=== PATIENT | male | born 1970 | race Caucasian/White ===

== ENCOUNTER 2021-06-04 00:11 | Emergency (ER) | payer SELFPAY ==
[2021-06-04 00:12] VITALS: BP 180/96; PULSE 95; RESP 18; TEMP 36.8; O2SAT 98; BMI 27.3
[2021-06-04 00:33] VITALS: O2SAT 98
--- NOTE | 2021-06-04 00:35 | EDS_ITS ---
HPI History of Present Illness Chief Complaint: Shortness of Breath Informant: patient Onset/Context/Timing Onset: Days (3) Context: gradual Timing: Continuous Worsened by: - (Drinking hot fluids) Relieved by: Nothing Associated Symptoms cough, rhinorrhea, fever, subjective, yellow sputum and green sputum; Negative for ear pain, sore throat or chills Chest Pain: Positive for Pressure and - (Heaviness) Narrative Narrative: Patient presents with shortness of breath that has been getting worse over the past 3 days. Patient states she is coughing up some green and yellow sputum. Patient states his breathing is worse whenever he drinks hot fluids. Patient states nothing makes it better. Patient admits to some rhinorrhea. Patient admits to subjective fevers but did not take his temperature at home. Patient admits to some heaviness and pressure in his chest. Patient denies any nausea or vomiting. Patient denies any PE risk factors. PE Risk Factors: Negative for Cancer, OCP + Smoking + > 35, Prior DVT or PE, Recent immobilization, Recent surgery and Recent travel [facility] Medical History Degenerative disc disease Home Medications Ibuprofen [Motrin] 800 mg PO TID PRN PRN #20 tab 01/29/15 [Rx Last Taken Unknown] hydrocodone-acetaminophen 1 - 2 tab PO Q4H PRN PRN #20 tablet 01/29/15 [Rx Last Taken Unknown] penicillin V potassium 500 mg PO 4X/DAY #40 tab 01/29/15 [Rx Last Taken Unknown] Allergy/AdvReac Type Severity Reaction Status Date / Time No Known Allergies Allergy Verified 01/29/15 14:37 Surgical History H/O hernia repair Social History Smoking Status: Current every day smoker tobacco type: cigarettes ROS ROS ED Constitutional Constitutional ED: Reports fever(s); Denies chills Eyes Eyes: Denies blurry vision or change in vision ENT ENT ED: Reports rhinorrhea; Denies sore throat Cardiovascular Cardiovascular: Reports chest pain; Denies palpitations Respiratory/Chest Respiratory/Chest: Reports cough and dyspnea Gastrointestinal Gastrointestinal: Denies nausea or vomiting Genitourinary Genitourinary ED: Denies dysuria or hematuria Musculoskeletal Musculoskeletal: Reports back pain and neck pain Integumentary Denies abscess or rash Neurologic Neurologic: Denies headache(s) or weakness Allergic/Immunologic Allergic/Immunologic ED: Denies mouth swelling or urticaria EXAM Physical Exam Const Vital Signs: 06/04/21 00:12 06/04/21 00:33 06/04/21 00:52 Temperature 98.3 F Temperature Source Oral Pulse Rate 95 84 Respiratory Rate 18 22 H Respiratory Effort Short of Breath Respiratory Pattern Tachypnea Tachypnea Blood Pressure 180/96 H Blood Pressure Mean 124 Pulse Ox 98 Oxygen Delivery Method Room Air Room Air Positive well nourished and well developed General Appearance ED: well developed HEENT Reports moist mucous membranes Neck supple and no JVD Resp normal respiratory effort Auscultation: wheezes scattered wheezes Cardio regular rate, regular rhythm and no murmurs GI normal to inspection, nondistended, normoactive bowel sounds and non-tender Palpation: soft Extremity normal to inspection General Extremety ED: Negative for edema or tenderness General Extremity: Negative for edema Neuro oriented x3, CN's II-XII intact bilaterally and no sensory deficits noted Sensorium / Orientation: alert Motor Exam: strength 5/5 throughout Psych mental status grossly normal Skin no rashes or lesions noted MDM MDM MDM Narrative Medical decision making narrative: Patient was given a DuoNeb aerosol here. EKG was obtained. On my interpretation, it showed a normal sinus rhythm with a rate of 77. MA interval, QRS interval, and QTc intervals were all normal. [place] was normal. There are no acute ST or T wave changes. CBC shows a mild leukocytosis of 13.5. Basic metabolic profile was within normal limits. Portable 1 view chest x-ray was obtained. On my interpretation, lung ahuja are clear. There is normal cardiac silhouette. Bony thorax is normal. There is no acute process noted. Radiologist also interpreted the x-ray and agrees. Patient had faint wheezes on reexamination. Patient was given a repeat dose of albuterol. Patient was feeling better after this. Patient was advised of his findings. Patient was instructed to follow-up with his primary care physician in 5 to 7 days for reevaluation. Patient understood and was agreeable with the plan. All questions were answered. Lab Data Attestation: I reviewed the patient's lab results. Labs: Laboratory Results - last 24 hr 06/04/21 06/04/21 00:48 00:48 WBC 13.5 H RBC 4.75 Hgb 14.1 Hct 41.8 MCV 88.0 MCH 29.7 MCHC 33.7 RDW Std Deviation 41.6 RDW Coeff of Wolfgang 12.9 Plt Count 199 MPV 10.6 Immature Gran % (Auto) 0.400 Neut % (Auto) 61.7 Lymph % (Auto) 28.1 Wise % (Auto) 8.6 Eos % (Auto) 0.8 Baso % (Auto) 0.4 Absolute Neuts (auto) 8.3 H Absolute Lymphs (auto) 3.78 Nucleated RBC % 0 Sodium 140 Potassium 3.7 Chloride 108 H Carbon Dioxide 25.0 Anion Gap 7 BUN 14 Creatinine 1.04 Estim Creat Clear Calc 84.98 Est GFR (MDRD) Af Amer 97 Est GFR (MDRD) Non-Af 80 BUN/Creatinine Ratio 13.5 Glucose 112 H Calcium 8.7 Radiography Chest X-Ray - ED: 1 View, Read by ED Physician, Read by Radiologist and No Acute Disease EKG Initial EKG: Attestation: I personally reviewed and interpreted this EKG as follows: Interpretation: Sinus Rhythm (77) and No Acute Injury Pattern Prior EKG tracings: not available for review Discharge Plan Triage Chief Complaint: Shortness of Breath ED Provider: Ronny Ashford Dx/Rx/DC Orders Clinical Impression: Dyspnea, Reactive airway disease Instructions: ED COPD Flare Prescriptions: No Action penicillin V potassium 500 MG tablet 500 mg PO 4X/DAY Qty: 40 RF: 0 hydrocodone-acetaminophen 1 TABLET tablet 1 - 2 tab PO Q4H PRN PRN (Reason: Pain) Qty: 20 RF: 0 Ibuprofen [Motrin] 800 MG tablet 800 mg PO TID PRN PRN (Reason: Pain) Qty: 20 RF: 0 Primary Care Provider: Care Physician,No Primary Referrals: Luis Antonio Guzman MD [STAFF PHYSICIAN] - 5-7 Days Care Physician,No Primary [Primary Care Provider] - Disposition Disposition: Home, Self Care
--- NOTE | 2021-06-04 00:38 | RAD_ITS ---
EXAM: XR CHEST, 1 VIEW CLINICAL INDICATION: Dyspnea TECHNIQUE: Frontal view of the chest. This report was created using [employer] report generation technology. COMPARISON: None. FINDINGS: LUNGS AND PLEURAL SPACES: Unremarkable. No consolidation or edema. No pneumothorax. No effusion. HEART: Unremarkable. Cardiac silhouette not enlarged. MEDIASTINUM: Central airways and mediastinal contour are unremarkable. BONES/JOINTS: Unremarkable. SOFT TISSUES: Unremarkable. RAD/Chest 1 View (Portable) IMPRESSION: No radiographic evidence of acute cardiopulmonary disease. Electronically Signed: Farideh Patel MD at 2:32 EDT ,
--- NOTE | 2021-06-04 00:38 | EKG12_ITS ---
Test Reason : SOB Blood Pressure : / mmHG Vent. Rate : 077 BPM Atrial Rate : 077 BPM P-R Int : 168 ms QRS Dur : 078 ms QT Int : 372 ms P-R-T Axes : 071 077 058 degrees QTc Int : 420 ms Normal sinus rhythm Normal ECG Confirmed by CARMEN HOLT, LUZ MARINA ([id number]), commercial production editor JADE SANCHEZ ([id number]) on 06/06/2021 1:04:27 PM Referred By: HERNANDO Confirmed By:DINAH MORALES MD
[2021-06-04 00:52] VITALS: PULSE 84; RESP 22
[2021-06-04] MEDS: Ipratropium/Albuterol Sulfate 3 ML AMPUL.NEB INHALATION (00:52)
[2021-06-04 00:59] LABS: Absolute Lymphocyte Count 3.78 X10^3/uL (0.83-4.51); Absolute Neutrophil Count 8.3 X10^3/uL (2.0-7.7); Basophil# 0.06 X10^3/uL; Basophil% 0.4 % (0-1); Eosinophil# 0.11 X10^3/uL; Eosinophils% 0.8 % (0-5); Hematocrit 41.8 % (40-54); Hemoglobin 14.1 g/dL (13.0-16.5); Lymphocyte # 3.78 X10^3/ul (0.83-4.51); Lymphocyte % 28.1 % (19-41); Mean Corp Hgb Conc 33.7 g/dL (32-36); Mean Corpuscular Hgb 29.7 pg (27.0-32.0); Mean Platelet Vol. 10.6 fl (6.2-12.0); Monocyte# 1.16 X10^3/uL; Monocyte% 8.6 % (0-10); NRBC Flagged by Analyzer 0 % (0-5); Neutrophil # 8.29 X10^3/uL (2.7-7.7); Neutrophil % 61.7 % (47-70); Platelet Count 199 K/mm3 (150-450); RBC Distribution Width CV 12.9 % (11.6-14.6); RBC Distribution Width SD 41.6 fl (35.1-43.9); Red Blood Count 4.75 M/mm3 (4.6-6.2); White Blood Count 13.5 K/mm3 (4.4-11.0)
[2021-06-04 01:13] LABS: Anion Gap 7 (5-15); BUN 14 mg/dL (7-18); BUN/Creat Ratio 13.5 RATIO (10-20); Calcium,Total 8.7 mg/dL (8.5-10.1); Chloride 108 mmol/L (98-107); Creatinine, Serum 1.04 mg/dL (0.70-1.30); EST Glomerular Filtration Rate 80 mL/min (>60); Est Glom Filt Rate - Afr Amer 97 mL/min (>60); Estimated Creatinine Clearance 84.98 ml/min; Glucose 112 mg/dL (74-106); Potassium 3.7 mmol/L (3.5-5.1); Sodium Level 140 mmol/L (136-145)
[2021-06-04] MEDS: Albuterol 2.5 MG/3 ML VIAL.NEB. INHALATION (02:56)
[2021-06-04 02:57] VITALS: BP 156/99; PULSE 80; PULSE 95; RESP 18; O2SAT 96
== END 2021-06-04 02:59 | disposition home or self-care (01) ==
PROVIDERS: Emergency Provider Emergency Medicine; Visit Provider Emergency Medicine
DX: J44.1 Chronic obstructive pulmonary disease with (acute) exacerbation (principal); F17.210 Nicotine dependence, cigarettes, uncomplicated
CPT/HCPCS: 71045; 80048; 85025; 87428; 93005; 94640; 99283; 99285; A4216

== ENCOUNTER 2021-06-04 13:10 | Emergency (ER) | payer SELFPAY ==
[2021-06-04 13:11] VITALS: BP 154/87; PULSE 86; RESP 18; TEMP 36.6; O2SAT 97; BMI 26.6
--- NOTE | 2021-06-04 14:03 | EDS_ITS ---
HPI History of Present Illness Chief Complaint: Shortness of Breath Narrative Narrative: Patient presents with continued shortness of breath. He states he was seen in the emergency department last evening with a performed a work-up on him. He was given aerosol treatments twice, but sent home without any medication, so he states. He continues to smoke cigarettes at least a pack a day. This is down from 2 to 3 packs a day. He states he has become short of breath once again. He denies any chest pain. No leg swelling. No other symptoms. He states I thought they give me something to clear it up. No cough. No other symptoms. [facility] Medical History (Updated 06/04/21 @ 15:29 by Jorge Valderrama MD) COPD (chronic obstructive pulmonary disease) Degenerative disc disease Home Medications Ibuprofen [Motrin] 800 mg PO TID PRN PRN #20 tab 01/29/15 [Rx Last Taken Unknown] hydrocodone-acetaminophen 1 - 2 tab PO Q4H PRN PRN #20 tablet 01/29/15 [Rx Last Taken Unknown] penicillin V potassium 500 mg PO 4X/DAY #40 tab 01/29/15 [Rx Last Taken Unknown] albuterol sulfate [Ventolin HFA] 2 puff INHALATION Q4H PRN PRN #1 ea 06/04/21 [Rx Last Taken Unknown] prednisone 40 mg PO DAILY 10 Days #20 tab 06/04/21 [Rx Last Taken Unknown] Allergy/AdvReac Type Severity Reaction Status Date / Time No Known Allergies Allergy Verified 06/04/21 13:14 Surgical History H/O hernia repair Social History Smoking Status: Current every day smoker tobacco type: cigarettes ROS ROS ED ROS Narrative Constitutional: No fever, no chills. HEENT: No sore throat. No neck pain. No loss of vision. No rhinorrhea. Cardiovascular: No chest pain. No palpitations. No pedal edema. Respiratory: No cough, positive shortness of breath. Abdominal: No abdominal pain. No nausea. No vomiting. Genitourinary: No dysuria. No hematuria. Musculoskeletal: No myalgias. No arthralgias. Neurologic: No headaches. No dizziness. No lightheadedness. Skin: No rash. No change in color. Psychiatric: No depression. No anxiety. EXAM Physical Exam Narrative Exam Narrative: Afebrile. Vital signs noted. HEENT: Normocephalic. Atraumatic. PERRL, EOMI. Neck soft and supple. No point tenderness or step off. Cardiovascular: Regular rate and rhythm. No murmurs, rubs, or gallops appreciated. Respiratory: No tachypnea. Speaking in full sentences. No retractions. Positive expiratory wheeze. Moving a fair amount of air. Gastrointestinal: Abdomen soft, nontender, with normoactive bowel sounds. No rebound or guarding. Neurological: Awake. Alert. Nonfocal, nonlateralizing. Skin: No rash. Normal color. No pallor. Musculoskeletal: No pedal edema. Full range of motion extremities. Const Vital Signs: 06/04/21 13:11 06/04/21 14:08 06/04/21 14:11 Temperature 97.9 F Temperature Source Temporal Pulse Rate 86 79 Respiratory Rate 18 21 H Respiratory Effort Short of Breath Respiratory Pattern Tachypnea Blood Pressure 154/87 H 156/95 H Blood Pressure Mean 109 115 Pulse Ox 97 97 Oxygen Delivery Method Room Air Room Air Room Air 06/04/21 14:25 Temperature Temperature Source Pulse Rate 87 Respiratory Rate 20 H Respiratory Effort Respiratory Pattern Blood Pressure Blood Pressure Mean Pulse Ox 98 Oxygen Delivery Method Room Air MDM MDM MDM Narrative Medical decision making narrative: He has a pulse ox of 97% on room air. Smoking cessation was once again discussed. He had a work-up last night inc luding chest x-ray and EKG and laboratory work. I do not feel that these need to be repeated. He will be given a DuoNeb aerosolized treatment here along with prednisone 60 mg orally. I will write him prescriptions for an albuterol inhaler and a prednisone burst should he be discharged. He was given an albuterol aerosolized treatment after the DuoNeb aerosolized treatment. He has improved. His pulse ox is 98% on room air without evidence of hypoxia. He will be given albuterol 2 puffs inhaled here in the emergency department. Smoking cessation was discussed. He was given a prednisone burst for the next 10 days. He will follow up with a primary care physician. Return instructions were reviewed. Disposition is discharged home in stable condition. Discharge Plan Triage Chief Complaint: Shortness of Breath ED Provider: Jorge Valderrama Dx/Rx/DC Orders Clinical Impression: COPD exacerbation, Dyspnea, Smoking history Instructions: Using an Inhaler with a Spacer, ED COPD Flare, ED Dyspnea Prescriptions: New prednisone 20 mg tablet 40 mg PO DAILY 10 Days Qty: 20 RF: 0 albuterol sulfate [Ventolin HFA] 90 mcg/actuation HFA aerosol inhaler 2 puff inhalation Q4H PRN PRN (Reason: Wheezing) Qty: 1 RF: 0 No Action penicillin V potassium 500 MG tablet 500 mg PO 4X/DAY Qty: 40 RF: 0 hydrocodone-acetaminophen 1 TABLET tablet 1 - 2 tab PO Q4H PRN PRN (Reason: Pain) Qty: 20 RF: 0 Ibuprofen [Motrin] 800 MG tablet 800 mg PO TID PRN PRN (Reason: Pain) Qty: 20 RF: 0 Primary Care Provider: Care Physician,No Primary Referrals: Carlos Joaquin MD [STAFF PHYSICIAN] - As Needed Care Physician,No Primary [Primary Care Provider] - Activity Restrictions/Additional Instructions: Stop smoking! Disposition Disposition: Home, Self Care
[2021-06-04 14:08] VITALS: O2SAT 97
[2021-06-04] MEDS: predniSONE 20 MG Tablet 60 MG PO (14:08)
[2021-06-04 14:11] VITALS: BP 156/95; PULSE 79; RESP 21; O2SAT 97
[2021-06-04] MEDS: Ipratropium/Albuterol Sulfate 3 ML AMPUL.NEB INHALATION (14:17)
[2021-06-04 14:25] VITALS: PULSE 87; RESP 20; O2SAT 98
[2021-06-04] MEDS: Albuterol 2.5 MG/3 ML VIAL.NEB. INHALATION (14:34)
[2021-06-04 15:48] VITALS: BP 156/94; PULSE 81; RESP 15; O2SAT 99
== END 2021-06-04 15:49 | disposition home or self-care (01) ==
PROVIDERS: Emergency Provider Emergency Medicine; Visit Provider Emergency Medicine
DX: J44.1 Chronic obstructive pulmonary disease with (acute) exacerbation (principal); F17.210 Nicotine dependence, cigarettes, uncomplicated
CPT/HCPCS: 94640

== ENCOUNTER 2021-09-06 08:41 | Emergency (ER) | payer OTHER, SELFPAY ==
[2021-09-06 08:43] VITALS: BP 148/93; PULSE 76; RESP 16; TEMP 36.7; O2SAT 98; BMI 24.3
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
[2021-09-06] MEDS: fentaNYL 100 MCG/2 ML Ampul 25 MCG IV (09:17)
[2021-09-06] MEDS: Ondansetron 4 MG/2 ML Vial IV (09:18)
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
[2021-09-06 09:22] LABS: Absolute Lymphocyte Count 2.52 X10^3/uL (0.83-4.51); Absolute Neutrophil Count 4.9 X10^3/uL (2.0-7.7); Basophil# 0.05 X10^3/uL; Basophil% 0.6 % (0-1); Eosinophil# 0.15 X10^3/uL; Eosinophils% 1.8 % (0-5); Hematocrit 42.3 % (40-54); Hemoglobin 13.7 g/dL (13.0-16.5); Lymphocyte # 2.52 X10^3/ul (0.83-4.51); Lymphocyte % 30.2 % (19-41); Mean Corp Hgb Conc 32.4 g/dL (32-36); Mean Corpuscular Hgb 29.8 pg (27.0-32.0); Mean Platelet Vol. 10.3 fl (6.2-12.0); Monocyte# 0.74 X10^3/uL; Monocyte% 8.9 % (0-10); NRBC Flagged by Analyzer 0 % (0-5); Neutrophil # 4.86 X10^3/uL (2.7-7.7); Neutrophil % 58.3 % (47-70); Platelet Count 177 K/mm3 (150-450); RBC Distribution Width CV 13.2 % (11.6-14.6); RBC Distribution Width SD 44.8 fl (35.1-43.9); White Blood Count 8.3 K/mm3 (4.4-11.0)
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
[2021-09-06 09:26] VITALS: BP 152/101; PULSE 91; RESP 20; O2SAT 98
--- NOTE | 2021-09-06 09:26 | RAD_ITS ---
STUDY: X-RAY - RIGHT TIBIA AND FIBULA REASON FOR EXAM: Male, 51 years old. Pain TECHNIQUE: 4 view(s) of the tibia and fibula were obtained. COMPARISON: None. FINDINGS: Normal visualized tibia. Normal visualized fibula. The soft tissue structures are unremarkable. RAD/Tibia & Fibula 2 Views IMPRESSION: Normal x-ray examination of the tibia and fibula. Electronically Signed: Susan Burch MD at 10:40 EDT ,
[2021-09-06 09:32] LABS: Anion Gap 5 (5-15); BUN 21 mg/dL (7-18); BUN/Creat Ratio 17.1 RATIO (10-20); Calcium,Total 8.7 mg/dL (8.5-10.1); Chloride 107 mmol/L (98-107); Creatinine, Serum 1.23 mg/dL (0.70-1.30); EST Glomerular Filtration Rate 66 mL/min (>60); Est Glom Filt Rate - Afr Amer 80 mL/min (>60); Estimated Creatinine Clearance 71.85 ml/min; Glucose 98 mg/dL (74-106); Sodium Level 140 mmol/L (136-145)
[2021-09-06 09:41] LABS: Prothrombin Time (Protime)PT. 13.3 SECONDS (11.7-14.9)
[2021-09-06 10:15] VITALS: BP 165/119; PULSE 73; RESP 16; O2SAT 100
[2021-09-06] MEDS: Ketorolac 15 MG/ML Vial IV (11:40)
[2021-09-06 12:19] VITALS: BP 155/103; PULSE 69; RESP 16; O2SAT 99
== END 2021-09-06 12:31 | disposition home or self-care (01) ==
PROVIDERS: Emergency Provider Student in an Organized Health Care Education/Training Program; Visit Provider Student in an Organized Health Care Education/Training Program
DX: S09.90XA Unspecified injury of head, initial encounter (principal); J44.9 Chronic obstructive pulmonary disease, unspecified; S39.012A Strain of muscle, fascia and tendon of lower back, initial encounter; S80.11XA Contusion of right lower leg, initial encounter; V47.1XXA Car passenger injured in collision with fixed or stationary object in nontraffic accident, initial encounter; Y93.89 Activity, other specified; F17.210 Nicotine dependence, cigarettes, uncomplicated
CPT/HCPCS: 70450; 71250; 72125; 73590; 74176; 80048; 82077; 85025; 85610; 93005; 96374; 96375; 99285; A4216; J2405

== ENCOUNTER 2023-02-03 08:41 | Emergency (ER) | payer MEDICAID, SELFPAY ==
[2023-02-03 08:43] VITALS: BP 132/89; PULSE 88; RESP 14; TEMP 36.4; O2SAT 98; BMI 25.2
--- NOTE | 2023-02-03 09:02 | EDS_ITS ---
HPI History of Present Illness Chief Complaint: General Illness Detail of Chief Complaint: Not feeling well since yesterday Informant: patient Narrative Narrative: Patient presents to the emergency department complaint of not feeling well since yesterday. Patient had a runny nose all day yesterday. Diarrhea started last evening and has had about 8-10 episodes of watery stool. He had subjective fever. Patient was at a warming long term last night. He has had no vomiting. He denies abdominal pain. No cough or sore throat or bodyaches. Patient has history of hypertension. [facility] Medical History COPD (chronic obstructive pulmonary disease) Degenerative disc disease Home Medications albuterol sulfate 90 mcg/actuation aerosol inhaler (Ventolin HFA) 2 puff inhalation Q4H PRN PRN Wheezing #1 ea 06/04/21 [Rx Last Taken Unknown] cyclobenzaprine 10 mg tablet 10 mg PO BID PRN muscle spasm #10 tabs 09/06/21 [Rx Last Taken Unknown] naproxen 500 mg tablet (Naprosyn) 500 mg PO BID PRN pain #20 tabs 09/06/21 [Rx Last Taken Unknown] loperamide 2 mg-simethicone 125 mg tablet (Imodium Multi-Symptom Relief) 1 tab PO TID PRN loose stool #14 tabs 02/03/23 [Rx Last Taken Unknown] Allergy/AdvReac Type Severity Reaction Status Date / Time No Known Allergies Allergy Verified 02/03/23 08:43 Surgical History H/O hernia repair Social History Smoking Status: Current every day smoker tobacco type: cigarettes ROS ROS ED Review of Systems ROS Unobtainable: other Constitutional Constitutional ED: Reports fever(s) and lethargy; Denies chills, sweats or weight loss Eyes Eyes: Denies blurry vision, change in vision or diplopia ENT ENT ED: Denies rhinorrhea or sore throat Cardiovascular Cardiovascular: Denies chest pain, orthopnea or racing heartbeat Respiratory/Chest Respiratory/Chest: Denies cough, dyspnea, dyspnea on exertion, orthopnea or spu mima Gastrointestinal Gastrointestinal: Reports diarrhea; Denies abdominal pain, nausea or vomiting Genitourinary Genitourinary ED: Denies dysuria, hematuria or urinary frequency Musculoskeletal Musculoskeletal: Denies arthralgias, back pain, myalgias or neck pain Integumentary Denies abscess, Abrasions or rash Neurologic Neurologic: Denies headache(s) or weakness Psychiatric Psychiatric: Denies anxiety, depression or suicidal thoughts Endocrine Endocrinology: Denies polydipsia, polyphagia or polyuria Hematologic/Lymphatic Hematologic/Lymphatic: Denies easy bleeding, easy bruising or lymphadenopathy Allergic/Immunologic Allergic/Immunologic ED: Denies mouth swelling, tongue swelling or urticaria EXAM Physical Exam Const Vital Signs: 02/03/23 08:43 02/03/23 09:27 Temperature 97.6 F L Temperature Source Temporal Pulse Rate 88 Respiratory Rate 14 Respiratory Effort Normal Non-Labored Blood Pressure 132/89 H Blood Pressure Mean 103 Pulse Ox 98 Oxygen Delivery Method Room Air Positive well nourished and well developed General Appearance ED: well developed and NAD HEENT Reports TM's clear and moist mucous membranes normocephalic and atraumatic; Negative for trauma or tenderness Tympanic Membrane ED: Yes TM's clear Eyes PERRL and EOMs intact bilaterally General Eye ED: Negative for pale conjunctiva or scleral icterus Neck no lymphadenopathy, supple and no JVD General: Negative for tenderness Chest Wall inspection of chest normal and palpation of chest normal Chest: Negative for tenderness Resp normal respiratory effort and clear to auscultation bilaterally Effort and Inspection: Negative for respiratory distress or pain with movement Auscultation: Negative for rhonchi, wheezes or diminished lung sounds Cardio regular rate, regular rhythm, S1 normal heart sound, S2 normal heart sound and no murmurs Peripheral Pulses: pulses 2+ throughout GI normal to inspection, nondistended, normoactive bowel sounds, soft to palpation, non-tender, non-distended and no masses Back/Spine no CVA tenderness and no thoracic nor lumbar tenderness Extremity normal to inspection General Extremety ED: Negative for edema General Extremity: Negative for edema Neuro oriented x3, CN's II-XII intact bilaterally, no sensory deficits noted and gait normal Sensorium / Orientation: awake, alert, oriented to person, oriented to place and oriented to time Motor Exam: strength 5/5 throughout and strength abnormal Psych mental status grossly normal Skin no rashes or lesions noted and no wounds MDM MDM MDM Narrative Medical decision making narrative: Patient presents with diarrhea that started last evening. He denies abdominal pain. He has had a runny nose. Differential is likely viral syndrome. Yas stern looks well. Vital signs stable. We did obtain a COVID and flu test which were negative. I suspect likely a viral enteritis. I did offer him IV fluids although clinically he looks well. He denied wanting fluids at this time otherwise. I did give him a dose of Imodium. Patient thinks the diarrhea is actually slowed down. Will discharge to home. I will write him a prescription for Imodium. Patient advised to return if persistent diarrhea, dehydration, vomiting, or condition worsening weight. Discharge Plan Triage Chief Complaint: General Illness ED Provider: Tejas Faye Dx/Rx/DC Orders Clinical Impression: Diarrhea Instructions: ED Diarrhea, Unknown Cause, ED Viral Syndrome (Adult) Prescriptions: New loperamide-simethicone [Imodium Multi-Symptom Relief] 2-125 mg tablet 1 tab PO TID PRN (Reason: loose stool) Qty: 14 0RF No Action albuterol sulfate [Ventolin HFA] 90 mcg/actuation HFA aerosol inhaler 2 puff inhalation Q4H PRN PRN (Reason: Wheezing) Qty: 1 0RF naproxen [Naprosyn] 500 mg tablet 500 mg PO BID PRN (Reason: pain) Qty: 20 0RF cyclobenzaprine 10 mg tablet 10 mg PO BID PRN (Reason: muscle spasm) Qty: 10 0RF Primary Care Provider: [facility] Meghan Ellington [facility] - [facility]-5 Days Disposition Disposition: Home, Self Care Discharge Date/Time: 02/03/23 10:06
[2023-02-03] MEDS: Loperamide 2 MG Capsule 4 MG PO (09:15)
== END 2023-02-03 10:06 | disposition home or self-care (01) ==
PROVIDERS: Emergency Provider Emergency Medicine; Visit Provider Emergency Medicine
DX: R19.7 Diarrhea, unspecified (principal); J44.9 Chronic obstructive pulmonary disease, unspecified; F17.210 Nicotine dependence, cigarettes, uncomplicated; Z59.02 Unsheltered homelessness
CPT/HCPCS: 87428; 99282

== ENCOUNTER 2023-02-13 12:34 | Emergency (ER) | payer MEDICAID, SELFPAY ==
[2023-02-13 12:35] VITALS: BP 116/68; PULSE 102; RESP 16; TEMP 37.3; O2SAT 99; BMI 24.5
[2023-02-13 12:53] VITALS: BP 118/78; PULSE 88; RESP 18; TEMP 37.1; O2SAT 97
--- NOTE | 2023-02-13 12:55 | EX.ED.DYSGE1 ---
HPI History of Present Illness Chief Complaint: Cold Sx Informant: patient Narrative Narrative: 52-year-old male with a previous medical history of COPD presenting to the emergency room with myalgias and fever. Patient states that for 10 days he had diarrhea. He was seen in the emergency department and it subsequently stopped yesterday. Last evening he began to experience fever cough with occasional sputum production and myalgias. He states it feels like I been hit by a truck. He notes generalized soreness to his abdomen. He denies sore throat or ear pain. No rashes. He smokes a half a pack a day which is significantly improved from his 3 packs a day. He does not wear home oxygen. He uses albuterol for his COPD. [facility] Medical History Anxiety COPD (chronic obstructive pulmonary disease) Degenerative disc disease Depression Drug abuse Home Medications albuterol sulfate 90 mcg/actuation aerosol inhaler (Ventolin HFA) 2 puff inhalation Q4H PRN PRN Wheezing #1 ea 06/04/21 [Rx Last Taken Unknown] cyclobenzaprine 10 mg tablet 10 mg PO BID PRN muscle spasm #10 tabs 09/06/21 [Rx Last Taken Unknown] naproxen 500 mg tablet (Naprosyn) 500 mg PO BID PRN pain #20 tabs 09/06/21 [Rx Last Taken Unknown] loperamide 2 mg-simethicone 125 mg tablet (Imodium Multi-Symptom Relief) 1 tab PO TID PRN loose stool #14 tabs 02/03/23 [Rx Last Taken Unknown] Allergy/AdvReac Type Severity Reaction Status Date / Time No Known Allergies Allergy Verified 02/03/23 08:43 Surgical History H/O hernia repair Social History Smoking Status: Current every day smoker tobacco type: cigarettes ROS ROS ED Constitutional Constitutional ED: Reports chills and fever(s); Denies weight loss Eyes Eyes: Denies change in vision or diplopia ENT ENT ED: Denies ear pain, rhinorrhea or sore throat Cardiovascular Cardiovascular: Denies chest pain, orthopnea, palpitations or racing heartbeat Respiratory/Chest Respiratory/Chest: Reports cough, dyspnea and sputum; Denies orthopnea Gastrointestinal Gastrointestinal: Reports abdominal pain and diarrhea; Denies nausea or vomiting Genitourinary Genitourinary ED: Denies dysuria, hematuria or urinary frequency Musculoskeletal Musculoskeletal: Reports myalgias; Denies arthralgias Integumentary Denies abscess or rash Neurologic Neurologic: Denies headache(s) or weakness Psychiatric Psychiatric: Denies anxiety, depression, suicidal ideation or suicidal thoughts Endocrine Endocrinology: Denies polydipsia, polyphagia or polyuria Allergic/Immunologic Allergic/Immunologic ED: Denies mouth swelling, tongue swelling or urticaria EXAM Physical Exam Const Vital Signs: 02/13/23 12:35 02/13/23 12:47 02/13/23 12:53 Temperature 99.2 F H 98.7 F Temperature Source Temporal Oral Pulse Rate 102 H 88 Respiratory Rate 16 18 Respiratory Effort Normal Non-Labored Respiratory Depth Respiratory Pattern Normal Blood Pressure 116/68 118/78 Blood Pressure Mean 84 91 Pulse Ox 99 97 Oxygen Delivery Method Room Air Room Air 02/13/23 13:16 Temperature Temperature Source Pulse Rate Respiratory Rate Respiratory Effort Short of Breath Respiratory Depth Normal Respiratory Pattern Normal Blood Pressure Blood Pressure Mean Pulse Ox Oxygen Delivery Method Room Air Positive well nourished and well developed General Appearance ED: well developed HEENT Reports normocephalic, head/scalp atraumatic and moist mucous membranes Eyes PERRL and EOMs intact bilaterally Neck no lymphadenopathy, supple and no JVD Resp normal respiratory effort and clear to auscultation bilaterally Cardio regular rate, regular rhythm and no murmurs GI Inspection: Negative for abdominal distention Auscultation: normoactive bowel sounds Palpation: soft and tender other (Mild diffuse tenderness) Back/Spine no CVA tenderness and normal ROM Extremity normal to inspection General Extremety ED: Negative for edema General Extremity: Negative for edema Neuro oriented x3 and CN's II-XII intact bilaterally Sensorium / Orientation: alert Motor Exam: strength 5/5 throughout Psych mental status grossly normal Mood & Affect: Negative for depressed or tearful Skin no rashes or lesions noted and no wounds MDM MDM MDM Narrative Medical decision making narrative: My independent interpretation of the plain film chest x-ray is no acute process. White count 8.5. CMP showed an AST of 42. Normal sodium. Potassium 3.4. Patient's not had any hypoxia. He. He received IV fluids and Toradol. He has been resting comfortably. No increased work of breathing. His lung sounds are clear. He is influenza A positive. Patient was advised on rest hydration monitoring his breathing. At this point I do see no pneumonia or dehydration. Would recommend aggressive fever control. History & Record Review Discussion w/independent historian: Patient Lab Data Attestation: I reviewed the patient's lab results. Labs: Laboratory Results - last 24 hr 02/13/23 13:10 WBC 8.5 RBC 4.55 L Hgb 13.0 Hct 40.5 MCV 89.0 MCH 28.6 MCHC 32.1 RDW Std Deviation 44.4 H RDW Coeff of Wolfgang 13.7 Plt Count 185 MPV 9.7 Immature Gran % (Auto) 0.400 Neut % (Auto) 70.9 H Lymph % (Auto) 12.8 L [place] % (Auto) 14.5 H Eos % (Auto) 0.1 Baso % (Auto) 1.3 H Absolute Neuts (auto) 6.0 Absolute Lymphs (auto) 1.09 Nucleated RBC % 0 Sodium 137 Potassium 3.4 L Chloride 108 H Carbon Dioxide 25.0 Anion Gap 4 L BUN 15 Creatinine 1.11 Estim Creat Clear Calc 78.73 Est GFR (MDRD) Af Amer 90 Est GFR (MDRD) Non-Af 74 BUN/Creatinine Ratio 13.5 Glucose 96 Calcium 8.6 Total Bilirubin 0.30 AST 42 H ALT 35 Alkaline Phosphatase 82 Total Protein 6.7 Albumin 3.4 Globulin 3.3 Albumin/Globulin Ratio 1.0 Radiography Diagnostic Testing: Clinical Impression(s) from Imaging Studies Chest X-Ray 02/13/23 13:20 IMPRESSION: No acute cardiopulmonary process identified. Electronically Signed: Key Najera MD at 14:12 EST , Discharge Plan Triage Chief Complaint: Cold Sx ED Provider: Jerel Romero Dx/Rx/DC Orders Clinical Impression: Influenza A, COPD (chronic obstructive pulmonary disease) Instructions: ED Influenza (Adult) Prescriptions: No Action albuterol sulfate [Ventolin HFA] 90 mcg/actuation HFA aerosol inhaler 2 puff inhalation Q4H PRN PRN (Reason: Wheezing) Qty: 1 0RF naproxen [Naprosyn] 500 mg tablet 500 mg PO BID PRN (Reason: pain) Qty: 20 0RF cyclobenzaprine 10 mg tablet 10 mg PO BID PRN (Reason: muscle spasm) Qty: 10 0RF loperamide-simethicone [Imodium Multi-Symptom Relief] 2-125 mg tablet 1 tab PO TID PRN (Reason: loose stool) Qty: 14 0RF Primary Care Provider: Medical Meghan Ellington [facility] - As Needed Disposition Disposition: Home, Self Care
[2023-02-13] MEDS: 0.9% Normal Saline (1000mL) 1,000 ML 1000 ML IV (13:09)
[2023-02-13] MEDS: Ketorolac 30 MG/ML Syringe IV (13:09)
[2023-02-13 13:16] VITALS: O2SAT 98
[2023-02-13 13:18] LABS: Absolute Lymphocyte Count 1.09 X10^3/uL (0.83-4.51); Basophil# 0.11 X10^3/uL; Basophil% 1.3 % (0-1); Eosinophil# 0.01 X10^3/uL; Eosinophils% 0.1 % (0-5); Hematocrit 40.5 % (40-54); Lymphocyte # 1.09 X10^3/ul (0.83-4.51); Lymphocyte % 12.8 % (19-41); Mean Corp Hgb Conc 32.1 g/dL (32-36); Mean Corpuscular Hgb 28.6 pg (27.0-32.0); Mean Platelet Vol. 9.7 fl (6.2-12.0); Monocyte# 1.23 X10^3/uL; Monocyte% 14.5 % (0-10); NRBC Flagged by Analyzer 0 % (0-5); Neutrophil # 6.04 X10^3/uL (2.7-7.7); Neutrophil % 70.9 % (47-70); Platelet Count 185 K/mm3 (150-450); RBC Distribution Width CV 13.7 % (11.6-14.6); RBC Distribution Width SD 44.4 fl (35.1-43.9); Red Blood Count 4.55 M/mm3 (4.6-6.2); White Blood Count 8.5 K/mm3 (4.4-11.0)
--- NOTE | 2023-02-13 13:20 | RAD_ITS ---
HISTORY: COPD, cough. TECHNIQUE: XR Chest 1 View. COMPARISON: 06/04/2021. FINDINGS: CARDIOMEDIASTINAL BORDERS: Cardiac silhouette within normal limits in size. Mediastinal contour unremarkable. LUNGS: Radiographically clear. PLEURA: No pleural effusion or pneumothorax seen. OSSEOUS STRUCTURES: Degenerative change. RAD/Chest 1 View (Portable) IMPRESSION: No acute cardiopulmonary process identified. Electronically Signed: Key Najera MD at 14:12 EST ,
[2023-02-13 13:34] LABS: AST(SGOT) 42 U/L (15-37); Alanine Aminotransfer ALT/SGPT 35 U/L (16-61); Albumin, Serum 3.4 g/dL (3.2-5.0); Alkaline Phosphatase 82 U/L (45-117); Anion Gap 4 (5-15); BUN 15 mg/dL (7-18); BUN/Creat Ratio 13.5 RATIO (10-20); Calcium,Total 8.6 mg/dL (8.5-10.1); Chloride 108 mmol/L (98-107); Creatinine, Serum 1.11 mg/dL (0.70-1.30); EST Glomerular Filtration Rate 74 mL/min (>60); Est Glom Filt Rate - Afr Amer 90 mL/min (>60); Estimated Creatinine Clearance 78.73 ml/min; Globulin 3.3 g/dL (2.2-4.2); Glucose 96 mg/dL (74-106); Potassium 3.4 mmol/L (3.5-5.1); Protein, Total 6.7 g/dL (6.4-8.2); Sodium Level 137 mmol/L (136-145)
== END 2023-02-13 14:55 | disposition home or self-care (01) ==
PROVIDERS: Emergency Provider Emergency Medicine; Visit Provider Emergency Medicine
DX: J10.1 Influenza due to other identified influenza virus with other respiratory manifestations (principal); J44.0 Chronic obstructive pulmonary disease with (acute) lower respiratory infection; F17.210 Nicotine dependence, cigarettes, uncomplicated
CPT/HCPCS: 71045; 80053; 85025; 87428; 96361; 96374; 99285; J7030